=== PATIENT | female | born 1985 | race African-American/Black ===

== ENCOUNTER 2017-05-16 11:50 | Emergency (ER) | payer OTHER ==
[~2017-05-16] VITALS: Ht 154.9 cm; Wt 95.0 kg
[~2017-05-16 11:50] MED LIST: ACET325T9 PO; AZIT250T6 PO; CYCL5TAB PO; HYDR-971 PO; HYDR1TAB10 PO; IBUP600T16 PO; IBUP800T19 PO; LISI1TAB7 PO
[2017-05-16 11:54] VITALS: BP 137/65
[2017-05-16] MEDS ORDERED: IV NORMAL SALINE 1,000ML 1,000 ML IV ONE (12:15)
[2017-05-16 12:26] LABS: BASO # 0.1 x10^3/uL (0.0-0.2); BASO % 1 % (0-3); EOS # 0.1 x10^3/uL (0.0-0.7); EOS % 1 % (0-3); HEMATOCRIT 43.7 % (36.0-47.0); HEMOGLOBIN 14.8 g/dL (12.0-15.5); LYMPH # 1.9 x10^3/uL (1.0-4.8); LYMPH % 22 % (24-48); MEAN CORPUSCULAR HEMOGLOBIN 30 pg (25-35); MEAN CORPUSCULAR HGB CONC 34 g/dL (31-37); MEAN CORPUSCULAR VOLUME 88 fL (79-100); MONO # 1.2 x10^3/uL (0.0-1.1); MONO % 14 % (0-9); NEUT # 5.4 x10^3uL (1.8-7.7); NEUT % 62 % (31-73); PLATELET COUNT 307 x10^3/uL (140-400); RED BLOOD COUNT 4.94 x10^6/uL (3.50-5.40); RED CELL DISTRIBUTION WIDTH 16.1 % (11.5-14.5); WHITE BLOOD COUNT 8.6 x10^3/uL (4.0-11.0)
[2017-05-16 12:37] LABS: PREG TEST PT QUAL NEGATIVE (NEG)
[2017-05-16] MEDS ORDERED: ONDANSETRON PF 4 MG/2 ML VIAL. ONE (13:04)
[2017-05-16] MEDS ORDERED: ONDANSETRON PF 4 MG/2 ML VIAL. IV ONE (13:15)
[2017-05-16] MEDS ORDERED: KETOROLAC 30 MG/ML VIAL. IV ONE (13:15)
--- NOTE | 2017-05-16 14:52 | PHYS DOC ---
Past History Past Medical History: Hypertension Past Surgical History: No Surgical History Smoking: Cigarettes, Less than 1pk/day Alcohol Use: None Drug Use: None Adult General Chief Complaint Chief Complaint: VAGINAL BLEEDING HPI HPI Patient is a 32-year-old female who presents with the complaint of heavy vaginal bleeding for 8 days. 0 para 0. Patient states that her menstrual periods have been recently becoming heavier, but this one just will not stop. It's very heavy. She soaked 2 pads an hour. She did call a few days ago to make an appointment with a [employer] doctor but that appointment is not until June 04. The patient is starting to feel a bit lightheaded and weak. Denies fever or chills. The patient has never taken control pills, she has never used IUD or injectable hormone, etc., for contraception. The patient is not bleeding elsewhere. She states she often has about 4 days of heavy bleeding but now she is going on her eighth day. She is also having a lot of crampy pain in her lower abdomen and her low back. She didn't take ibuprofen for because she was not sure whether that might make her bleed heavier. Review of Systems Review of Systems Constitutional: Denies fever or chills [] GI: She is having some nausea : As in history of present illness Musculoskeletal: Denies back pain or joint pain [] Integument: Denies rash or skin lesions [] Neurologic: Denies headache, focal weakness or sensory changes [] Endocrine: Denies polyuria or polydipsia [] Current Medications Current Medications Current Medications Medications (Trade) Dose Ordered Sig/Nicole Start Time Stop Time Status Last Admin Dose Admin Ketorolac Tromethamine (Toradol) 30 mg 1X ONCE 05/16/17 13:15 05/16/17 13:16 DC 05/16/17 13:15 30 MG Ondansetron HCl (Zofran) 4 mg STK-MED ONCE 05/16/17 13:04 05/16/17 13:05 DC Sodium Chloride 1,000 ml @ 1,000 mls/hr 1X ONCE 05/16/17 12:15 05/16/17 13:14 DC 05/16/17 12:15 1,000 MLS/HR Allergies Allergies Allergies Coded Allergies Type Severity Reaction Last Updated Verified Penicillins Allergy Unknown Hives 05/14/15 Yes Physical Exam Physical Exam Constitutional: Well developed, well nourished, no acute distress, non-toxic appearance. Alert, mentating normally, not orthostatic. HENT: Normocephalic, atraumatic, bilateral external ears normal, nose normal. [] Eyes: conjunctiva normal, no discharge. [] Neck: Normal range of motion, no stridor. [] Pelvic exam: Normal external genitalia. Vaginal vault with moderate amount of blood. Cervix with moderate amount of active bleeding. No cervicitis. Cervix appears normal. Bimanual exam: No cervical motion tenderness. Uterus is not enlarged or tender. Adnexa are without masses or tenderness. Skin: Warm, dry, no erythema, no rash. [] Extremities: No tenderness, no cyanosis, no clubbing, ROM intact, no edema. [] Neurologic: Alert and oriented X 3, normal motor function, normal sensory function, no focal deficits noted. [] Current Patient Data Vital Signs Vital Signs Date Time Temp Pulse Resp B/P (MAP) Pulse Ox O2 Delivery O2 Flow Rate FiO2 05/16/17 11:54 98.2 110 16 95 Room Air Lab Results Laboratory Tests Test 05/16/17 12:14 White Blood Count 8.6 x10^3/uL (4.0-11.0) Red Blood Count 4.94 x10^6/uL (3.50-5.40) Hemoglobin 14.8 g/dL (12.0-15.5) Hematocrit 43.7 % (36.0-47.0) Mean Corpuscular Volume 88 fL (79-100) Mean Corpuscular Hemoglobin 30 pg (25-35) Mean Corpuscular Hemoglobin Concent 34 g/dL (31-37) Red Cell Distribution Width 16.1 % (11.5-14.5) H Platelet Count 307 x10^3/uL (140-400) Neutrophils (%) (Auto) 62 % (31-73) Lymphocytes (%) (Auto) 22 % (24-48) L Monocytes (%) (Auto) 14 % (0-9) H Eosinophils (%) (Auto) 1 % (0-3) Basophils (%) (Auto) 1 % (0-3) Neutrophils # (Auto) 5.4 x10^3uL (1.8-7.7) Lymphocytes # (Auto) 1.9 x10^3/uL (1.0-4.8) Monocytes # (Auto) 1.2 x10^3/uL (0.0-1.1) H Eosinophils # (Auto) 0.1 x10^3/uL (0.0-0.7) Basophils # (Auto) 0.1 x10^3/uL (0.0-0.2) Serum Test, Qualitative Negative (NEG) EKG EKG [] Radiology/Procedures Radiology/Procedures [] Course & Med Decision Making Course & Med Decision Making Pertinent Labs and Imaging studies reviewed. (See chart for details) 32-year-old female presents with a long, heavy menstrual period. Examine the ED is unremarkable except for vaginal bleeding. Labs in the ED are negative for anemia. test is negative. The patient was given a liter of IV fluids. She was given some IV Toradol for cramps and IV Zofran for nausea. I discussed the case with Dr. Zaman, on-call for [facility] [employer]. He recommended a 5 day course of twice a day A-gestin. I wrote for this. See instructions for plan. The patient is stable for discharge. [] Dragon Disclaimer Dragon Disclaimer This chart was dictated in whole or in part using Voice Recognition software in a busy, high-work load, and often noisy Emergency Department environment. It may contain unintended and wholly unrecognized errors or omissions. Departure Departure: Impression: Primary Impression: Menorrhagia Disposition: 01 HOME, SELF-CARE Referrals: OMER ENNIS MD (PCP) Patient Instructions: Menorrhagia, [id number] Additional Instructions: Drink plenty of fluids. Purchase an [id number]-[id number] multivitamin with iron and take one daily. I spoke with Dr. Zaman, [employer] doctor. He recommended the hormone that I have prescribed. This should slow down or even stop your bleeding. Take ibuprofen 800 mg every 8 hours. This will help with the cramping pain and should also help slow down the bleeding. Scripts Norethindrone Acetate (NORETHINDRONE ACETATE) 5 Mg Tablet 5 MG PO BID for heavy menstrual bleeding for 10 Days, #20 TAB Prov: MARY SANCHEZ MD 05/16/17 MARY SANCHEZ MD May 16, 2017 14:52
[2017-05-16] MEDS ORDERED: NORE5TAB PO (14:57)
== END 2017-05-16 15:10 | disposition home or self-care (01) ==
LOC: ER 11:50
DX: N92.0 Excessive and frequent menstruation with regular cycle (principal); I10 Essential (primary) hypertension; F17.210 Nicotine dependence, cigarettes, uncomplicated; Z88.0 Allergy status to penicillin
CPT/HCPCS: 36415; 84703; 85027; 96361; 96374; 96375; 99284; J1885; J2405; 99285-25; J7030

== ENCOUNTER 2018-07-04 04:55 | Emergency (ER) | payer OTHER ==
[~2018-07-04] VITALS: Ht 154.9 cm; Wt 92.9 kg
[~2018-07-04 04:55] MED LIST changes: +NORE5TAB PO
--- NOTE | 2018-07-04 05:23 | PHYS DOC ---
Past History Past Medical History: Hypertension, Migraines Past Surgical History: No Surgical History Smoking: Cigarettes, Less than 1pk/day Alcohol Use: None Drug Use: None Adult General Chief Complaint Chief Complaint: HEADACHE HPI HPI 33-year-old female presents with headache. Patient states the headache started 2 days ago as she woke up. The pain is on the left side in the front and is similar to headaches in the past. It is a pressure-like sensation and she is sensitive to light. She does not typically have a headache last 2 days. She does not get headaches very often. She tried ibuprofen for the pain, her last dose was 400 mg 9 hours ago. The ibuprofen has not mitigated the headache at all. Patient feels mildly nauseous but denies vomiting. She denies fever or chills. She was feeling well prior to the start of this headache. Review of Systems Review of Systems Constitutional: Denies fever or chills [] Eyes: Denies change in visual acuity, redness, or eye pain. Photophobia [] HENT: Denies nasal congestion or sore throat [] Respiratory: Denies cough or shortness of breath [] Cardiovascular: No additional information not addressed in HPI [] GI: Denies abdominal pain, nausea, vomiting, bloody stools or diarrhea [] : Denies dysuria or hematuria [] Musculoskeletal: Denies back pain or joint pain [] Integument: Denies rash or skin lesions [] Neurologic: Headache [] Endocrine: Denies polyuria or polydipsia [] All other systems were reviewed and found to be within normal limits, except as documented in this note. Current Medications Current Medications Current Medications Medications (Trade) Dose Ordered Sig/Nicole Start Time Stop Time Status Last Admin Dose Admin Diphenhydramine HCl (Benadryl) 25 mg 1X ONCE 07/04/18 05:30 07/04/18 05:31 Ketorolac Tromethamine (Toradol 30mg Vial) 30 mg 1X ONCE 07/04/18 05:30 07/04/18 05:31 Metoclopramide HCl (Reglan Vial) 10 mg 1X ONCE 07/04/18 05:15 07/04/18 05:16 UNV Sodium Chloride 1,000 ml @ 1,000 mls/hr 1X ONCE 07/04/18 05:30 07/04/18 06:29 Allergies Allergies Allergies Coded Allergies Type Severity Reaction Last Updated Verified Penicillins Allergy Unknown Hives 05/14/15 Yes Physical Exam Physical Exam Constitutional: Well developed, well nourished, no acute distress, non-toxic appearance. [] HENT: Normocephalic, atraumatic, bilateral external ears normal, oropharynx moist, no oral exudates, nose normal. [] Eyes: PERRLA, EOMI, conjunctiva normal, no discharge. Photophobia[] Neck: Normal range of motion, no tenderness, supple, no stridor. [] Cardiovascular:Heart rate regular rhythm, no murmur [] Lungs & Thorax: Bilateral breath sounds clear to auscultation [] Abdomen: Bowel sounds normal, soft, no tenderness, no masses, no pulsatile masses. [] Skin: Warm, dry, no erythema, no rash. [] Back: No tenderness, no CVA tenderness. [] Extremities: No tenderness, no cyanosis, no clubbing, ROM intact, no edema. [] Neurologic: Alert and oriented X 3, normal motor function, normal sensory function, no focal deficits noted. [] Psychologic: Affect normal, judgement normal, mood normal. [] Current Patient Data Vital Signs Vital Signs Date Time Temp Pulse Resp B/P (MAP) Pulse Ox O2 Delivery O2 Flow Rate FiO2 07/04/18 04:57 97.5 78 16 100 EKG EKG [] Radiology/Procedures Radiology/Procedures [] Course & Med Decision Making Course & Med Decision Making Pertinent Labs and Imaging studies reviewed. (See chart for details) We will give the patient a monitor and cocktail consisting of 1 L normal saline , 30 mg of Toradol, 25 mg of Benadryl, 10 mg of Reglan. The patient's labs are pending. I am signing out the patient to Dr. Moore for final disposition at 0600. [] 0644: Patient was evaluated and as stated his pain dropped from 8 to 5 and feeling comfortable to go home. Labs was unremarkable except for mild elevation of white count of 11.5. Plan to discharge patient home with diagnosis of headache. Dragon Disclaimer Dragon Disclaimer This electronic medical record was generated, in whole or in part, using a voice recognition dictation system. Departure Departure: Impression: Primary Impression: Headache Disposition: HOME, SELF-CARE (at 0647) Condition: IMPROVED Referrals: PCP,NO (PCP) Patient Instructions: Migraine Headache Additional Instructions: Drink plenty of liquids Follow-up with your primary care physician in 3-5 days Return to ER if not getting better Problem Qualifiers Primary Impression: Headache Headache type: unspecified Headache chronicity pattern: acute headache Intractability: intractable Qualified Codes: R51 - Headache LEONARD ALEJANDRO DO Jul 04, 2018 05:23 JULIA MOORE MD Jul 04, 2018 06:49
[2018-07-04] MEDS ORDERED: IV NORMAL SALINE 1,000ML 1,000 ML IV ONE (05:30)
[2018-07-04] MEDS ORDERED: METOCLOPRAMIDE HCL 10 MG/2 ML VIAL. IV ONE (05:30)
[2018-07-04] MEDS ORDERED: diphenhydrAMINE 50 MG/ML VIAL IVP ONE (05:30)
[2018-07-04] MEDS ORDERED: KETOROLAC 30 MG/ML VIAL. IV ONE (05:30)
[2018-07-04 06:23] LABS: BASO # 0.2 x10^3/uL (0.0-0.2); BASO % 2 % (0-3); EOS # 0.2 x10^3/uL (0.0-0.7); EOS % 2 % (0-3); HEMATOCRIT 39.4 % (36.0-47.0); HEMOGLOBIN 13.3 g/dL (12.0-15.5); LYMPH # 4.6 x10^3/uL (1.0-4.8); LYMPH % 40 % (24-48); MEAN CORPUSCULAR HEMOGLOBIN 29 pg (25-35); MEAN CORPUSCULAR HGB CONC 34 g/dL (31-37); MEAN CORPUSCULAR VOLUME 87 fL (79-100); MONO # 0.9 x10^3/uL (0.0-1.1); MONO % 8 % (0-9); NEUT # 5.6 x10^3uL (1.8-7.7); NEUT % 48 % (31-73); PLATELET COUNT 327 x10^3/uL (140-400); RED BLOOD COUNT 4.52 x10^6/uL (3.50-5.40); RED CELL DISTRIBUTION WIDTH 15.6 % (11.5-14.5); WHITE BLOOD COUNT 11.5 x10^3/uL (4.0-11.0)
[2018-07-04 06:26] LABS: CALCIUM 8.3 mg/dL (8.5-10.1); CREATININE 0.7 mg/dL (0.6-1.0); GFR 116.6
[2018-07-04 06:31] LABS: POTASSIUM 3.8 mmol/L (3.5-5.1)
[2018-07-04 06:33] VITALS: BP 142/74
== END 2018-07-04 06:54 | disposition home or self-care (01) ==
LOC: ER 04:55
DX: R51 Headache (principal); H53.143 Visual discomfort, bilateral; R11.0 Nausea; I10 Essential (primary) hypertension; G43.909 Migraine, unspecified, not intractable, without status migrainosus; F17.210 Nicotine dependence, cigarettes, uncomplicated; Z88.0 Allergy status to penicillin
CPT/HCPCS: 36415; 80048; 85025; 96374; 96375; 99284; J1200; J1885; J2765; J7030

== ENCOUNTER 2019-05-17 08:01 | Emergency (ER) | payer OTHER ==
[~2019-05-17] VITALS: Ht 154.9 cm; Wt 89.4 kg
[~2019-05-17 08:01] MED LIST changes: +HYDR-3165 PO; -HYDR-971 PO
[2019-05-17] MEDS ORDERED: KETOROLAC 30 MG/ML VIAL. IV ONE (08:30)
[2019-05-17] MEDS ORDERED: IV NORMAL SALINE 1,000ML 1,000 ML IV ONE (08:30)
[2019-05-17] MEDS ORDERED: diphenhydrAMINE 50 MG/ML VIAL IVP ONE (08:30)
[2019-05-17] MEDS ORDERED: METOCLOPRAMIDE HCL 10 MG/2 ML VIAL. IV ONE (08:30)
--- NOTE | 2019-05-17 08:35 | PHYS DOC ---
Past History Past Medical History: Asthma, Hypertension Past Surgical History: Other Smoking: Cigarettes, Less than 1pk/day Additional Smoking Information: 5 CIGARETTES/DAY Alcohol Use: None Drug Use: None Adult General Chief Complaint Chief Complaint: HEADACHE HPI HPI 34-year-old female presents with headache. She states it is a pressure sensation on the left side of her head. This started yesterday, but was at a lower level. When the patient woke up this morning it was much more significant. The pain is moderate in intensity. It feels like her previous migraines. She has a history of migraines. She was seen in this emergency room about 6 months ago and the migraine cocktail helped. She denies recent trauma. She has some nausea, but no vomiting. Denies fever or chills. Review of Systems Review of Systems Constitutional: Denies fever or chills [] Eyes: Denies change in visual acuity, redness, or eye pain [] HENT: Denies nasal congestion or sore throat [] Respiratory: Denies cough or shortness of breath [] Cardiovascular: No additional information not addressed in HPI [] GI: Nausea. Denies abdominal pain vomiting, bloody stools or diarrhea [] : Denies dysuria or hematuria [] Musculoskeletal: Denies back pain or joint pain [] Integument: Denies rash or skin lesions [] Neurologic: Headache. Denies focal weakness or sensory changes [] Endocrine: Denies polyuria or polydipsia [] All other systems were reviewed and found to be within normal limits, except as documented in this note. Current Medications Current Medications Current Medications Medications (Trade) Dose Ordered Sig/[facility] Start Time Stop Time Status Last Admin Dose Admin Diphenhydramine HCl (Benadryl) 25 mg 1X ONCE 05/17/19 08:30 05/17/19 08:31 UNV Ketorolac Tromethamine (Toradol 30mg Vial) 30 mg 1X ONCE 05/17/19 08:30 05/17/19 08:31 UNV Metoclopramide HCl (Reglan Vial) 10 mg 1X ONCE 05/17/19 08:30 05/17/19 08:31 UNV Sodium Chloride 1,000 ml @ 1,000 mls/hr 1X ONCE 05/17/19 08:30 05/17/19 09:29 UNV Allergies Allergies Allergies Coded Allergies Type Severity Reaction Last Updated Verified Penicillins Allergy Unknown Hives 6/30/15 Yes Physical Exam Physical Exam Constitutional: Well developed, well nourished, no acute distress, non-toxic appearance. [] HENT: Normocephalic, atraumatic, bilateral external ears normal, oropharynx moist, no oral exudates, nose normal. Photophobia [] Eyes: PERRLA, EOMI, conjunctiva normal, no discharge. [] Neck: Normal range of motion, no tenderness, supple, no stridor. [] Cardiovascular:Heart rate regular rhythm, no murmur [] Lungs & Thorax: Bilateral breath sounds clear to auscultation [] Abdomen: Bowel sounds normal, soft, no tenderness, no masses, no pulsatile masses. [] Skin: Warm, dry, no erythema, no rash. [] Back: No tenderness, no CVA tenderness. [] Extremities: No tenderness, no cyanosis, no clubbing, ROM intact, no edema. [] Neurologic: Alert and oriented X 3, normal motor function, normal sensory function, no focal deficits noted. [] Psychologic: Affect normal, judgement normal, mood normal. [] Current Patient Data Vital Signs Vital Signs Date Time Temp Pulse Resp B/P (MAP) Pulse Ox O2 Delivery O2 Flow Rate FiO2 05/17/19 08:18 97.8 58 16 100 Room Air EKG EKG [] Radiology/Procedures Radiology/Procedures [] Course & Med Decision Making Course & Med Decision Making Pertinent Labs and Imaging studies reviewed. (See chart for details) After 3 different people attempted to get an IV, we gave up on IV access for the patient. I've given her oral Benadryl, oral Reglan, oral Sumatriptan, IM injection of Toradol, and oral rehydration. The patient's pain has improved. She is stable for discharge at this time. [] Dragon Disclaimer Dragon Disclaimer This electronic medical record was generated, in whole or in part, using a voice recognition dictation system. Departure Departure: Impression: Primary Impression: Migraine headache without aura Disposition: 01 HOME, SELF-CARE Condition: STABLE Referrals: PCP,NO (PCP) Patient Instructions: Migraine Headache, [id number] Problem Qualifiers Primary Impression: Migraine headache without aura Status migrainosus presence: without status migrainosus Intractability: intractable Qualified Codes: G43.019 - Migraine without aura, intractable, without status migrainosus LEONARD ALEJANDRO DO May 17, 2019 08:35
[2019-05-17] MEDS ORDERED: KETOROLAC 15 MG/ML VIAL. IV ONE (08:45)
[2019-05-17] MEDS: KETOROLAC 60 MG/2 ML VIAL. IM ONE (09:12)
[2019-05-17] MEDS: METOCLOPRAMIDE 10 MG TABLET PO ONE (09:12)
[2019-05-17] MEDS: SUMAtriptan SUCCINATE 50 MG TABLET PO ONE (09:12)
[2019-05-17] MEDS: diphenhydrAMINE HCL 25 MG CAPSULE PO ONE (09:12)
[2019-05-17 10:18] VITALS: BP 102/63
== END 2019-05-17 10:18 | disposition home or self-care (01) ==
LOC: ER 08:01
DX: G43.019 Migraine without aura, intractable, without status migrainosus (principal); J45.909 Unspecified asthma, uncomplicated; I10 Essential (primary) hypertension; F17.210 Nicotine dependence, cigarettes, uncomplicated; Z88.0 Allergy status to penicillin
CPT/HCPCS: 96372; 99284; J1885; J8597; Q0163

== ENCOUNTER 2022-02-24 14:02 | Emergency (ER) | payer OTHER ==
[~2022-02-24] VITALS: Ht 154.9 cm; Wt 89.4 kg
[~2022-02-24 14:02] MED LIST changes: +LISI1TAB39 PO; -LISI1TAB7 PO
[2022-02-24 14:17] VITALS: BP 143/80
[2022-02-24] MEDS ORDERED: IBUPROFEN 600 MG TABLET. PO ONE (15:00)
--- NOTE | 2022-02-24 15:06 | PHYS DOC ---
Past History Past Medical History: Asthma, Hypertension Additional Past Medical Histor: PCOS (VEDA CRUZ APRN) Past Surgical History: Other (VEDA CRUZ APRN) Smoking: Cigarettes, Less than 1pk/day Alcohol Use: None Drug Use: None (VEDA CRUZ APRN) General Adult EDM: Chief Complaint: HEADACHE HPI: HPI: Patient is a 36-year-old female presents with sinus congestion, headache. Denies nausea/vomiting/diarrhea. Denies fevers. Patient reports that symptoms started 3 days ago. Patient reports taking Tylenol yesterday for symptoms. History of hypertension. (VEDA CRUZ APRN) Review of Systems: Review of Systems: ROS At least 10 ROS systems have been reviewed and are negative except as documented in the HPI. General: Negative except as outlined in HPI above. Skin: Negative except as outlined in HPI above. HEENT: Negative except as outlined in HPI above. Neck: Negative except as outlined in HPI above. Respiratory: Negative except as outlined in HPI above.. Cardiovascular: Negative except as outlined in HPI above. Abdomen: Negative except as outlined in HPI above. : Negative except as outlined in HPI above. Back/MSK: Negative except as outlined in HPI above. Neuro: Negative except as outlined in HPI above. Psych: Negative except as outlined in HPI above. (VEDA CRUZ APRN) Current Medications: Current Meds: Current Medications Medications (Trade) Dose Ordered Sig/Nicole Start Time Stop Time Status Last Admin Dose Admin Guaifenesin (MUCINEX ER with DM) 1 tab BID 02/24/22 21:00 UNV Ibuprofen (Motrin) 600 mg 1X ONCE 02/24/22 15:00 02/24/22 15:01 UNV (VEDA CRUZ APRN) Allergies: Allergies: Allergies Coded Allergies Type Severity Reaction Last Updated Verified Penicillins Allergy Unknown Hives 05/14/15 Yes (VEDA CRUZ APRN) Physical Exam: PE: Constitutional: Well developed, well nourished, no acute distress, non-toxic appearance. HENT: bilateral external ears normal, oropharynx moist, no oral exudates Eyes: PERRLA, conjunctiva normal, no discharge. Neck: Normal range of motion, no tenderness, supple, no stridor. Cardiovascular:Heart rate regular rhythm, no murmur Lungs & Thorax: Bilateral breath sounds clear to auscultation Abdomen: Bowel sounds normal, soft, no tenderness, no masses Skin: Warm, dry, no erythema, no rash. [] Back: No tenderness, no CVA tenderness. [] Extremities: No tenderness, no cyanosis, no clubbing, ROM intact, no edema. [] Neurologic: Alert and oriented X 3, normal motor function, normal sensory function, no focal deficits noted. [] Psychologic: Affect normal, judgement normal, mood normal. [] (VEDA CRUZ APRN) Current Patient Data: Vital Signs: Vital Signs Date Time Temp Pulse Resp B/P (MAP) Pulse Ox O2 Delivery O2 Flow Rate FiO2 02/24/22 14:17 99.7 114 16 143/80 (101) 98 Room Air (VEDA CRUZ APRN) EKG: EKG: [] (VEDA CRUZ APRN) Radiology/Procedures: Radiology/Procedures: [] (VEDA CRUZ APRN) Heart Score: C/O Chest Pain: No Risk Factors: Risk Factors: DM, Current or recent (<one month) smoker, HTN, HLP, family history of CAD, obesity. Risk Scores: Score 0 - 3: 2.5% MACE over next 6 weeks - Discharge Home Score 4 - 6: 20.3% MACE over next 6 weeks - Admit for Clinical Observation Score 7 - 10: 72.7% MACE over next 6 weeks - Early Invasive Strategies (VEDA CRUZ APRN) Course & Med Decision Making: Course & Med Decision Making Pertinent Labs and Imaging studies reviewed. (See chart for details) [] 36-year-old female presents with sinus congestion and headache. Afebrile. Physical exam is unremarkable. Patient given 600 mg ibuprofen and Mucinex DM to help with symptoms. Discussed [id number] treatments at home. Ibuprofen for fever/headache. Discussed return precautions. Advised patient to drink plenty of fluids. Follow-up with PCP if symptoms are not improving. (VEDA CRUZ APRN) Janessa Disclaimer: Dragselvin Disclaimer: This electronic medical record was generated, in whole or in part, using a voice recognition dictation system. (VEDA CRUZ APRN) Departure Departure: Impression: Primary Impression: Headache Qualified Codes: R51.9 - Headache, unspecified Additional Impression: Sinus congestion Disposition: 01 HOME / SELF CARE / HOMELESS Condition: STABLE Referrals: STEPHANIE CRAIN MD (PCP) Patient Instructions: Sinus Headache, [id number] Additional Instructions: You were seen in the emergency room for headache and sinus congestion. Purchase Mucinex DM [id number] to help with symptoms. Ibuprofen also. Follow-up with your PCP if symptoms do not improve. Make sure you are drinking plenty of fluids. EMERGENCY DEPARTMENT GENERAL DISCHARGE INSTRUCTIONS Thank you for coming to [facility] (ED) today and trusting us with you care. We trust that you had a positivie experience in our Emergency Department. If you wish to speak to the department management, you may call the director at [phone]. YOUR FOLLOW UP INSTRUCTIONS ARE FOLLOWS: 1. Do you have a private Doctor? If you do not have a private doctor, please ask for a resource list of physicians or clinics that may be able to assist you with follow up care. 2. The Emergency Physician has interpreted your x-rays. The X-Ray specialist will also review them. If there is a change in the findings, you will be notified in 48 hours when at all possible. 3. A lab test or culture has been done, your results will be reviewed and you will be notified if you need a change in treatment. ADDITIONAL INSTRUCTIONS AND INFORMATION: 1. Your care today has been supervised by a physician who is specially trained in emergency care. Many problems require more than one evaluation for a complete diagnosis and treatment. We recommend that you schedule your follow up appointment as recommended to ensure complete treatment of you illness or injury. If you are unable to obtain follow up care and continue to have a problem, or if your condition worsens, we recommend that you return to the ED. 2. We are not able to safely determine your condition over the phone nor are we able to give sound medical advice over the phone. For these safety reasons, if you call for medical advice we will ask you to come to the ED for further evaluation. 3. If you have any questions regarding these discharge instructions please call the ED at [phone]. SAFETY INFORMATION: In the interest of safety, wellness, and injury prevention; we encourage you to wear your sealbelt, if you smoke; quite smoking, and we encourage family to use a protective helmet for bicycling and other sporting events that present an increased risk for head injury. IF YOUR SYMPTOMS WORSEN OR NEW SYMPTOMS DEVELOP, OR YOU HAVE CONCERNS ABOUT YOUR CONDITION; OR IF YOUR CONDITION WORSENS WHILE YOU ARE WAITING FOR YOUR FOLLOW UP APPOINTMENT; EITHER CONTACT YOUR PRIMARY CARE DOCTOR, THE PHYSICIAN WHOSE NAME AND NUMBER YOU WERE GIVEN, OR RETURN TO THE ED IMMEDIATELY. Attending Signature Attending Signature I have reviewed the PA/WEB OPERATIONS SPECIALIST's note and plan of care. I was available for consultation as needed during the patient's visit in the emergency department. I agree with the clinical impression, plan, and disposition. (GRANT MENSAH DO) VEDA CRUZ APRN Feb 24, 2022 15:06 GRANT MENSAH DO Feb 24, 2022 22:54
[2022-02-24] MEDS ORDERED: guaiFENesin DM 600/30MG 1 TAB TAB.ER.12H PO ONE (15:09)
[2022-02-24] MEDS ORDERED: guaiFENesin DM 600/30MG 1 TAB TAB.ER.12H PO SCH (21:00)
== END 2022-02-24 15:16 | disposition home or self-care (01) ==
LOC: ER 14:02
DX: R51.9 Headache, unspecified (principal); R09.81 Nasal congestion; J45.909 Unspecified asthma, uncomplicated; I10 Essential (primary) hypertension; F17.210 Nicotine dependence, cigarettes, uncomplicated; Z88.0 Allergy status to penicillin
CPT/HCPCS: 99283